=== PATIENT | female | born 1975 | race Caucasian/White ===

== ENCOUNTER 2020-05-20 19:58 | Emergency (ER) | payer BC, MEDICAID ==
[~2020-05-20] VITALS: Ht 154.9 cm; Wt 82.0 kg
[2020-05-20 20:10] VITALS: BP 143/75
[2020-05-20] MEDS ORDERED: ACETAMINOPHEN 325MG TABLET PO ONE (20:30)
== END 2020-05-20 22:07 | disposition left against medical advice (07) ==
LOC: ER 19:58
DX: M79.18 Myalgia, other site (principal); R11.2 Nausea with vomiting, unspecified; R10.9 Unspecified abdominal pain; Z09 Encounter for follow-up examination after completed treatment for conditions other than malignant neoplasm; Z86.19 Personal history of other infectious and parasitic diseases
CPT/HCPCS: 93005; 99283